=== PATIENT | female | born 1960 | race Caucasian/White ===

== ENCOUNTER 2020-05-23 13:51 | Outpatient (CLI) | payer MEDICARE, SELFPAY ==
[2020-05-23 14:21] LABS: Basophils % 0.4 %; Eosinophils # 0.1 10^3/uL (0.0-0.8); Eosinophils % 1.6 %; Hematocrit 41.8 % (37.0-47.0); Hemoglobin 13.3 g/dL (11.5-15.3); Lymphocytes # 2.3 10^3/uL (0.8-4.8); Lymphocytes % 30.5 %; Mean Corpuscular HGB Conc 31.8 g/dL (30.0-36.0); Mean Corpuscular Hemoglobin 28.5 pg (28.0-34.0); Mean Corpuscular Volume 89.5 fL (81-99); Mean Platelet Volume 10.8 fL (7.4-10.4); Monocytes # 0.5 10^3/uL (0.2-0.9); Monocytes % 6.7 %; Neutrophils # 4.58 10^3/uL (1.8-7.7); Neutrophils % 60.5 %; Nucleated Red Blood Cells % 0 %; Platelet Count 211 10^3/cmm (130-400); Red Blood Count 4.67 10^6/uL (4.1-5.3); Red Cell Distribution Width 12.9 % (12.1-15.1); White Blood Count 7.6 10^3/uL (4.0-10.0)
[2020-05-23 14:54] LABS: Alanine Aminotransferase 13 U/L (0-33); Albumin Level 4.3 g/dL (3.5-5.2); Alkaline Phosphatase 80 IU/L (35-105); Aspartate Amino Transferase 16 U/L (0-32); Blood Urea Nitrogen 12 mg/dL (8-23); Calcium 9.2 mg/dL (8.5-10.5); Carbon Dioxide 26 mmol/L (22-29); Chloride 103 mmol/L (98-107); Globulin 2.6 g/dL (1.3-4.6); Glomerular Filtration Rate 85.4 mL/min (90-130); Glucose 85 mg/dL (65-115); Osmolality Calculated 287 mOsm/kg (285-295); Sodium 139 mmol/L (136-145); Thyroid Stimulating Hormone 1.49 uIU/mL (0.27-4.20); Total Bilirubin 0.3 mg/dL (0.15-1.2); Total Protein 6.9 g/dL (6.6-8.7)
== END 2020-05-23 13:52 | disposition home or self-care (01) ==
LOC: LAB 13:56
PROVIDERS: PCP Family Medicine; Visit Provider Surgery
DX: R19.7 Diarrhea, unspecified (principal)
CPT/HCPCS: 80053; 83630; 84443; 85025; 87493; 87506

== ENCOUNTER 2020-06-10 12:35 | Outpatient (CLI) | payer MEDICARE, SELFPAY ==
[2020-06-10] MEDS: iohexol 300 mg/mL 50 mL Btl PO (13:25)
--- NOTE | 2020-06-10 14:30 | CT_ITS ---
WS: [id number] CT ABDOMEN PELVIS TECHNIQUE: Contrast-enhanced CT of the abdomen and pelvis with coronal and sagittal reformatted image s. CLINICAL INFORMATION: ABDOMINAL PAIN COMPARISON: CT 9 DLP: 1159.[address] scans at [facility] use at least one of these dose optimization techniques: automat ed exposure control; mA and/or kV adjustment per patient size (includes targeted exams where dose is matched to clinical indication); or iterative reconstruction. FINDINGS: Diffuse fatty infiltration of the liver. Normal portal vein and splenic vein. Normal gallbladder. A f ew incidental small hepatic cysts. Small esophageal hiatal hernia. Lung bases are well aerated. Splen ic granulomas. Normal pancreas. Adrenal glands are normal. Normal renal parenchymal enhancement. No h ydronephrosis. Normal caliber abdominal aorta. Sigmoid diverticulosis. Slight thickening and inflammatory stranding involving the sigmoid colon susp icious for mild or early diverticulitis. Recommend correlation for infection. No free fluid in the ab domen or pelvis. No evidence of small or large bowel obstruction. Normal appendix. Tiny fat-containin g umbilical hernia. No periaortic or pelvic lymphadenopathy. No inguinal lymphadenopathy. Prior postoperative changes hysterectomy. Stable grade 1 anterolisthesis L5 on S1 with spondylolysis. Disc space narrowing worse L5-S1 with vacuum disc phenomenon. CT/CT abdomen pelvis w con* [id number] IMPRESSION: 1. Suspicion for mild or early acute diverticulitis with mild thickening and i nduration of the sigmoid colon. 2. No free fluid in the abdomen or pelvis. 3. Diffuse fatty infiltration of the liver. 4. Small esophageal hiatal hernia. 5. Tiny fat-containing umbilical hernia. 6. Stable grade 1 anterolisthesis L5 on S1 with spondylolysis.
[2020-06-10] MEDS: iohexol 300 mg/mL 100 mL Btl IV (14:34)
== END 2020-06-10 12:36 | disposition home or self-care (01) ==
LOC: RADWPI 12:41
PROVIDERS: PCP Family Medicine; Visit Provider Surgery
DX: R10.9 Unspecified abdominal pain (principal); K76.0 Fatty (change of) liver, not elsewhere classified; K44.9 Diaphragmatic hernia without obstruction or gangrene; K42.9 Umbilical hernia without obstruction or gangrene; M43.07 Spondylolysis, lumbosacral region
CPT/HCPCS: 74177; Q9967

== ENCOUNTER 2023-03-18 08:52 | Emergency (ER) | payer MEDICARE, SELFPAY ==
[2023-03-18 08:57] VITALS: BP 178/103; PULSE 76; RESP 17; TEMP 36.9; O2SAT 94
--- NOTE | 2023-03-18 08:57 | XR_ITS ---
WS: [id number] Left hip, AP and frog-leg views, 03/18/2023 Clinical Data: pain Comparison: None. Findings: No fractures or dislocations are seen. The left hip shows no narrowing, erosion, cyst formation or fr agmentation of the left femoral head. The soft tissues are not remarkable. The adjacent pelvis is nor mal. XR/XR hip LT 2-3V wo/w pel* [id number] Impression: Negative left hip. Tonnis classification: grade 0: normal radiographs
[2023-03-18 09:20] VITALS: BP 178/103; PULSE 62; RESP 16; O2SAT 96
--- NOTE | 2023-03-18 09:23 | W.ED.EXTPRO ---
HPI - Extremity Problem General: Chief complaint: Extremity Problem,Nontraumatic Stated complaint: left leg/ hip pain Time Seen by Provider: 03/18/23 08:52 Source: patient Mode of arrival: ambulatory History of Present Illness: 62-year-old female presents the emergency room with complaint of left upper leg pain and left hip pain this been going on for several months lately it has been getting worse she has worsening this morning. Where she feels like she can barely ambulate no trauma. She has been seen for this before and is actually been referred to orthopedics has not yet seen Dr. Story has an appointment later this month. She not had any fever sweats or chills. No previous surgery to this area. Pain seems to emanate from the groin crease on the anterior thigh. No swelling of the leg no chest pain and no shortness of breath MD Complaint: extremity pain and joint pain Onset (ago): month(s) Pain Consistency: intermittent Location: left and lower extremity Quality: sharp Radiation: distal Relieving factors: rest Exacerbating factors: range of motion and palpation Associated symptoms: Deny arthralgias, chest pain, fever(s), myalgias, rash or short of breath Review of Systems Const: Denies: fever(s) or chills Card: Denies: chest pain, palpitations, irregular heart rhythm or edema Resp: Denies: dyspnea, productive cough or non-productive cough GI: Denies: abdominal pain, nausea, vomiting, hematemesis, coffee ground emesis, diarrhea, constipation, bloating, hematochezia or melena : Denies: flank pain, difficulty voiding, dysuria, urinary frequency or urinary urgency Skin/Breast: Denies: rash PFSH ED PFSH: Surgical History History of Silvana fundoplication Family History Denies family history of Anesthesia complication Bleeding disorder Social History Smoking and tobacco status: never smoked Alcohol intake: never Substance/Drug Use: never Adopted: No Caregiver/support person: Yes Lives independently: Yes Household members: spouse Housing: House Marital status: Current occupational status: employed 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 Physical Exam Const: GENERAL APPEARANCE: cooperative ORIENTATION/CONSCIOUSNESS: Yes awake, Yes oriented to person, Yes oriented to place and Yes oriented to time HENMT: COMMON NORMALS: normocephalic, atraumatic and hearing grossly normal bilaterally HEAD & SCALP: normocephalic and atraumatic Resp: COMMON NORMALS: normal respiratory effort, No retractions, No use of accessory muscles and clear to auscultation bilaterally AUSCULTATION: clear to auscultation bilaterally Cardio: COMMON NORMALS: regular rate, regular rhythm and No murmurs present (Cardio) RATE: regular rate RHYTHM: regular rhythm GI: COMMON NORMALS: Soft to palpation and No hepatosplenomegaly present AUSCULTATION: Yes normoactive bowel sounds PALPATION: Yes Soft to palpation, No Tenderness to palpation present (GI), No Guarding due to palpation present (GI) and Yes No hepatosplenomegaly present Extremity: COMMON NORMALS: normal to inspection, capillary refill normal, no clubbing, cyanosis or edema, no calf tenderness and no pedal edema OTHER: Pain with internal rotation of the left hip. Dorsum plantarflexion 5 of 5 no edema Homans negative. Dorsalis pedis posterior tibialis popliteal and femoral pulses all normal. Patient reports exquisite pain with attempts to palpate femoral pulse. There is no evidence of rash no vesicular changes no redness or erythema. No ecchymosis. Deep tendon reflexes +2/4 at the left patellar tendon. Neuro: SENSORIUM/ORIENTATION: Yes oriented to person, Yes oriented to place and Yes oriented to time Skin: COMMON NORMALS: no rashes or lesions noted GENERAL SKIN EXAM: no rashes or lesions noted Course Vital Signs: Vital signs: Vital Signs Temperature 98.4 F 03/18/23 08:57 Pulse Rate 62 03/18/23 09:20 Respiratory Rate 16 03/18/23 10:00 Blood Pressure 178/103 03/18/23 09:20 Pulse Oximetry 96 03/18/23 09:20 Oxygen Delivery Me thod Room Air 03/18/23 09:20 MDM - Extremity (Nontraumatic) Medical Decision Making No trauma. X-ray of the hip unremarkable. Neurovascularly appears to be intact has exquisite pain with even light touch will attempting to palpate femoral pulse. Seems this is more radicular in nature's suspect potential L3 nerve root irritation. Dexamethasone morphine and ketorolac given with some improvement will discharge home on steroid taper use hydrocodone in place of tramadol follow-up with orthopedics and primary care as previously scheduled. No bending stooping lifting. Medical Records I reviewed the patient's medical records. Lab Data I reviewed the patient's lab results. 03/18/23 09:20 Radiology Impressions Hip/Pelvis X-Ray 03/18/23 08:57 Impression: Negative left hip. Tonnis classification: grade 0: normal radiographs Laboratory Results WBC 6.4 10^3/uL (4.0-10.0) 03/18/23 09:20 RBC 4.79 10^6/uL (4.1-5.3) 03/18/23 09:20 Hgb 13.6 g/dL (11.5-15.3) 03/18/23 09:20 Hct 42.4 % (37.0-47.0) 03/18/23 09:20 MCV 88.5 fl (81-99) 03/18/23 09:20 MCH 28.4 pg (28.0-34.0) 03/18/23 09:20 MCHC 32.1 g/dL (30.0-36.0) 03/18/23 09:20 RDW 13.4 % (12.1-15.1) 03/18/23 09:20 Plt Count 227 10^3/cmm (130-400) 03/18/23 09:20 MPV 10.5 fL (7.4-10.4) H 03/18/23 09:20 Neut % (Auto) 64.7 % 03/18/23 09:20 Lymph % (Auto) 27.2 % 03/18/23 09:20 Cannon % (Auto) 5.2 % 03/18/23 09:20 Eos % (Auto) 2.0 % 03/18/23 09:20 Baso % (Auto) 0.6 % 03/18/23 09:20 Neut # (Auto) 4.14 10^3/uL (1.8-7.7) 03/18/23 09:20 Lymph # (Auto) 1.7 10^3/uL (0.8-4.8) 03/18/23 09:20 Cannon # (Auto) 0.3 10^3/uL (0.2-0.9) 03/18/23 09:20 Eos # (Auto) 0.1 10^3/uL (0.0-0.8) 03/18/23 09:20 Baso # (Auto) 0.0 10^3/uL (0.0-0.1) 03/18/23 09:20 Nucleated RBC % (auto) 0 % 03/18/23 09:20 Nucleated RBCs # 0.0 /100WBC 03/18/23 09:20 C-Reactive Protein 3.0 mg/L (0.0-4.9) 03/18/23 09:20 Discharge Plan Discharge Patient Disposition: Home Clinical Impression: Radicular leg pain Condition: Stable Prescriptions: New prednisone 20 mg tablet 20 mg PO TID Qty: 15 0RF Rx Instructions: 1 p.o. 3 times daily x3 days, 1 p.o. twice daily x2 days, 1 p.o. daily x2 days hydrocodone-acetaminophen 5-325 mg tablet 1 tab PO Q6H PRN (Reason: pain) Qty: 10 0RF Discontinued tramadol 50 mg tablet 50 mg PO TID PRN No Action meloxicam 15 mg tablet 15 mg PO DAILY ropinirole 0.5 mg tablet 0.5 mg PO DAILY omeprazole 20 mg capsule,delayed release(DR/EC) 20 mg PO BID propranolol 20 mg tablet 20 mg PO BID lisinopril 10 mg tablet 10 mg PO DAILY fluoxetine [Prozac] 40 mg capsule 40 mg PO DAILY dicyclomine 10 mg capsule 10 mg PO TID metronidazole [Flagyl] 500 mg tablet 500 mg PO TID 10 Days Qty: 30 0RF ciprofloxacin HCl 500 mg tablet 500 mg PO BID 10 Days Qty: 20 0RF Discharge Orders: Discharge ED (Routine); Ordered 03/18/23 Ordered By: Darrell Cazares Referrals: Anali Lay APRN [Primary Care Provider] - Discharge Diet: Usual diet Discharge Activity: Increase activity as tolerated Patient Instructions: Opioid Safety, Pain Management Activity Restrictions/Additional Instructions: You are seen today for radicular left leg pain. Recommend that you follow-up with your doctor and orthopedics as scheduled. Use the prednisone taper beginning tomorrow. Use the hydrocodone as needed in place of tramadol. Coding Level of Care Code ED Vice President Marketing & Development for Rachel Yuen
[2023-03-18 09:33] LABS: Basophils % 0.6 %; Eosinophils # 0.1 10^3/uL (0.0-0.8); Hematocrit 42.4 % (37.0-47.0); Hemoglobin 13.6 g/dL (11.5-15.3); Lymphocytes # 1.7 10^3/uL (0.8-4.8); Lymphocytes % 27.2 %; Mean Corpuscular HGB Conc 32.1 g/dL (30.0-36.0); Mean Corpuscular Hemoglobin 28.4 pg (28.0-34.0); Mean Corpuscular Volume 88.5 fl (81-99); Mean Platelet Volume 10.5 fL (7.4-10.4); Monocytes # 0.3 10^3/uL (0.2-0.9); Monocytes % 5.2 %; Neutrophils # 4.14 10^3/uL (1.8-7.7); Neutrophils % 64.7 %; Nucleated Red Blood Cells % 0 %; Platelet Count 227 10^3/cmm (130-400); Red Blood Count 4.79 10^6/uL (4.1-5.3); Red Cell Distribution Width 13.4 % (12.1-15.1); White Blood Count 6.4 10^3/uL (4.0-10.0)
[2023-03-18 10:00] VITALS: RESP 16
[2023-03-18] MEDS: ondansetron 2 mg/ML SDV 2 mL 4 MG IVP (10:00)
[2023-03-18] MEDS: morphine 4 mg/mL SDV 1 mL IVP (10:00)
[2023-03-18] MEDS: dexamethasone 10 mg/mL INJ IM (10:00)
[2023-03-18] MEDS: ketorolac 30 mg/mL INJ IVP (10:00)
== END 2023-03-18 11:10 | disposition home or self-care (01) ==
PROVIDERS: Emergency Provider Family Medicine; PCP Nurse Practitioner Family
DX: M54.10 Radiculopathy, site unspecified (principal)
CPT/HCPCS: 36415; 73502; 85025; 86140; 96372; 96374; 96375; 99284; J1100; J1885; J2270; J2405

== ENCOUNTER → 2023-04-04 10:09 | Outpatient (BNVA) | payer MEDICARE, SELFPAY | PROVIDERS: PCP Nurse Practitioner Family; Referring Provider Nurse Practitioner Family; Visit Provider Specialist | DX: M16.12 Unilateral primary osteoarthritis, left hip | CPT/HCPCS: 73502; 99214 ==

== ENCOUNTER 2023-04-26 06:48 | Outpatient (CLI) | payer MEDICARE, SELFPAY ==
--- NOTE | 2023-04-26 07:15 | MR_ITS ---
WS: [id number] EXAMINATION: MR hip LT wo con* [id number] ORDER DATE: 04/26/2023 7:02 AM COMPARISON: None. HISTORY: hip pain CONTRAST: None. TECHNIQUE: Coronal STIR of the Pelvis. Coronal proton density, coronal T1, axial T2 fat sat, axial T1 , sagittal T2 fat sat, and sagittal T1 performed of the hip. FINDINGS: Again seen is focal protuberance of the LEFT femoral head neck junction LEFT greater than RIGHT which can be seen with cam type femoral acetabular impingement. Advanced degenerative narrowing LEFT great er than RIGHT hips. Subchondral cystic change involving the acetabulum and femoral head with edema. M ild diffuse edema within the femoral head extending into the femoral neck. Chondromalacia anterior cunningham perior acetabulum with chronic appearing complex tear anterior superolateral labrum Small joint effusion. Normal bone marrow signal in the sacrum and bony pelvis. Soft tissue and intram uscular edema about the LEFT hip. IMPRESSION: 1. Slight protuberance of the LEFT femoral head-neck junction can be seen with cam type femoral acet abular impingement. 2. Advanced degenerative arthritis LEFT hip with subchondral cystic change and edema in the LEFT fem oral head and acetabulum. 3. Advanced chondromalacia with edema anterosuperior acetabulum with complex labral tear with fissur ing in the anterior superolateral labrum 4. Small joint effusion. 5. Soft tissue edema within the LEFT hip musculature and soft tissues. 6. No other acute findings.
== END 2023-04-26 06:49 | disposition home or self-care (01) ==
LOC: RAD 06:50
PROVIDERS: PCP Nurse Practitioner Family; Visit Provider Specialist
DX: M16.12 Unilateral primary osteoarthritis, left hip (principal); M25.559 Pain in unspecified hip; M94.252 Chondromalacia, left hip; M25.452 Effusion, left hip
CPT/HCPCS: 73721

== ENCOUNTER → 2023-04-27 08:43 | Outpatient (BNVA) | payer MEDICARE, SELFPAY | PROVIDERS: PCP Nurse Practitioner Family; Visit Provider Specialist | DX: M16.12 Unilateral primary osteoarthritis, left hip (principal); S73.192A Other sprain of left hip, initial encounter; X58.XXXA Exposure to other specified factors, initial encounter | CPT/HCPCS: 99214 ==

== ENCOUNTER 2023-05-18 10:32 | Outpatient (CLI) | payer MEDICARE, SELFPAY ==
[2023-05-18 11:13] LABS: Basophils % 0.6 %; Eosinophils # 0.1 10^3/uL (0.0-0.8); Eosinophils % 2.1 %; Hematocrit 43.3 % (36-47); Lymphocytes # 1.9 10^3/uL (0.8-4.8); Lymphocytes % 28.6 %; Mean Corpuscular HGB Conc 32.8 g/dL (30-55); Mean Corpuscular Hemoglobin 29.5 pg (27-33); Mean Corpuscular Volume 89.8 fl (85-98); Mean Platelet Volume 10.8 fL (7.4-10.4); Monocytes # 0.4 10^3/uL (0.2-0.9); Monocytes % 5.7 %; Neutrophils # 4.14 10^3/uL (1.8-7.7); Neutrophils % 62.7 %; Nucleated Red Blood Cells % 0 %; Platelet Count 232 10^3/cmm (157-399); Red Blood Count 4.82 10^6/uL (3.85-5.65); White Blood Count 6.61 10^3/uL (3.29-11.43)
[2023-05-18 11:31] LABS: Alanine Aminotransferase 8 U/L (0-33); Albumin Level 4.3 g/dL (3.5-5.2); Alkaline Phosphatase 72 U/L (35-105); Aspartate Amino Transferase 17 U/L (0-32); Blood Urea Nitrogen 12 mg/dL (8-23); Carbon Dioxide 27 mmol/L (22-29); Chloride 99 mmol/L (98-107); Globulin 2.9 g/dL (1.3-4.6); Glomerular Filtration Rate 84.5 mL/min (90-130); Glucose 76 mg/dL (65-115); Osmolality Calculated 283 mOsm/kg (285-295); Sodium 137 mmol/L (136-145); Total Bilirubin 0.3 mg/dL (0.15-1.2); Total Protein 7.2 g/dL (6.6-8.7)
[2023-05-18 11:40] LABS: Anion Gap 15.1 (5-19); Potassium 4.1 mmol/L (3.5-5.1)
[2023-05-18 11:52] LABS: Add Urine Microscopic? YES; Bilirubin Urine Neg (Negative); Blood Urine Neg (Negative); Glucose Urine UA Norm (Normal); Ketones Urine Negative (Negative); Leukocyte Esterase Urine 1+ (Negative); Nitrate Urine Negative (Negative); Protein Urine Neg (Negative); Specific Gravity, Urine 1.005 (1.005-1.030); Urine Appearance Clear (CLEAR); Urine Color Yellow (Yellow); Urobilinogen Urine Norm (Negative); pH Urine 7 (5-7)
[2023-05-18 12:04] LABS: Add Urine Culture? No; RBC Urine RARE /hpf (0-2); Squamous Epithelial Cell Urine 0-4 /hpf (0-5)
== END 2023-05-18 10:33 | disposition home or self-care (01) ==
LOC: LAB 10:33
PROVIDERS: PCP Nurse Practitioner Family; Visit Provider Specialist
DX: M16.12 Unilateral primary osteoarthritis, left hip (principal); S73.199A Other sprain of unspecified hip, initial encounter; X58.XXXA Exposure to other specified factors, initial encounter
CPT/HCPCS: 36415; 80053; 81001; 85025

== ENCOUNTER → 2023-05-23 09:00 | Outpatient (BNVA) | payer MEDICARE, SELFPAY | PROVIDERS: PCP Nurse Practitioner Family; Visit Provider Specialist | DX: M16.12 Unilateral primary osteoarthritis, left hip (principal) | CPT/HCPCS: 99213 ==

== ENCOUNTER 2023-05-24 18:25 | Observation (INO) | payer MEDICARE, SELFPAY ==
[2023-05-23 09:34] VITALS: BMI 29.2
[2023-05-24] VITALS (18 sets, daily range): BP systolic 91–148; BP diastolic 65–87; PULSE 51–74; RESP 15–18; TEMP 36.2–36.8; O2SAT 91–100
--- NOTE | 2023-05-24 | XRR_ITS ---
[facility] Final Radiology Report with Addendum Call: [phone] assistance Online chat: [email or web address] Name: MIRTHA GOTTLIEB Age: 62Years F Date: 05/24/2023 SSN: -- : 1960 Study: XR PELVIS 1 OR 2 VIEWS Requesting Physician: KAY PERSAUD Images: 1 Add?l Studies: Provided Clinical History: S/P ANA PAULA, Low AP Pelvis Page 1 of 2 Addendum created by Sawyer Lay MD on 05/25/2023 9:23 AM Central Time ([place] & [place]): ADDENDUM: The correct name for this examination is actually Mirtha Gottlieb. Addendum created by Sawyer Lay MD on 05/25/2023 8:56 AM Central Time ([place] & [place]): ADDENDUM: This examination is actually on patient Mirtha Figueroa. The correct patient for this examination is Mirtha Figueroa. Initial Report created on 05/24/2023 4:21 PM Central Time ([place] & [place]): PROCEDURE INFORMATION: Exam: XR Pelvis Exam date and time: 05/24/2023 2:48 PM Age: 70 years old Clinical indication: Device placement; Other: Ana Paula, prior surgery; Surgery date: Post-operative (0-2 days); Additional info: S/P ana paula, low ap pelvis TECHNIQUE: Imaging protocol: Radiologic exam of the pelvis. Views: 1 or 2 view. COMPARISON: CR XR hip RT 2-3V wo/w pel* [id number] 06/20/2017 3:39 PM FINDINGS: Bones/joints: Satisfactory immediate postoperative appearance of left total hip arthroplasty. Soft tissues: Postoperative gas in the soft tissues. IMPRESSION: MIRTHA GOTTLIEB Final Radiology Report CONFIDENTIALITY STATEMENT This report is intended only for use by the referring physician, and only in accordance with law. If you received this in error, call [phone]. Page 2 of 2 Satisfactory postoperative appearance. Thank you for allowing us to participate in the care of your patient. Dictated and Authenticated by: Sawyer Lay MD 05/24/2023 4:21 PM Central Time ([place] & [place]) [place]
--- OUTSIDE RECORDS SUMMARY | 2023-05-24 08:57 | XMS_ITS | Patient Health Record ---
Author Name Unknown Organization [facility] Address [address] [place] [address] Care Team Providers Care Surveillance Sensor Officer Name Role Phone LakishaDennys bowenin Primary Care Provider Юлия Melendez Unavailable [phone] ALLERGIES Allergen (clinical drug ingredient) Drug/Non Drug Allergy documented on EMR Reaction Allergy Type Onset Date Status No Known Drug Allergy Unknown Drug Allergy Active REASON FOR REFERRAL No Information MEDICATIONS Medication SIG (Take, Route, Fr equency, Duration) Notes Start Date End Date Status rOPINIRole HCl 0.5 MG 1 tablet 1 to 3 ho urs before bedtime Orally Once a day Active Reglan 10 MG 1 tablet 30 minutes before bowel prep Orally once for 1 days 11/02/2021 Active Meloxicam 15 MG 1 tablet Orally Once a day Active Omeprazole 20 MG 1 capsule 30 minutes before morning meal Orally twice a day Active Lisinopril 10 MG 1 tablet Orally Once a day Active FLUoxetine HCl 40 MG 1 capsule Orally Once a day Active Propranolol HCl 20 MG 1 tablet Orally Twice a day Active IMMUNIZATIONS Vaccine Route Administration Date Status Comme nts Influenza (whole), CPT 46442 Inactive Unknown 07/02/2015 Administered SOCIAL HISTORY Tobacco Use: Social History Observation Description Date Details (start date - stop date) Never Smoker NA - NA Sex Assigned At : Social History Observation Description Sex Assigned At Unknown Tobacco Use/Smoking Question Answer Notes Are you a nonsmoker Alcohol Screen (Audit-C) Question Answer Notes Did you have a drink containing alcohol in the p ast year? No Points 0 Interpretation Negative PROBLEMS Problem Type ICD Code Onset Dates Problem Status W/U Status Risk SNOMED Code Notes Problem Essential hypertension (I10) Active confirmed 07131876 Problem Restless legs syndrome (RLS) (G25.81) Active confirmed 83987385 Problem Gastroesophageal reflux disease, unspecified whether esophagitis present (K21.9) Active confirmed 407428176 Problem Chronic depression (F32.A) Active confirmed 147841097 PLAN OF TREATMENT Pending Test Test Name Order Date Fecal Leukocyte 91379 11/02/2021 Basic Metabolic Panel 82612 11/02/2021 CBC w\ Auto Diff 42103 11/02/2021 Hepatic Function Panel 53183 11/02/2021 CRP 10129 11/02/2021 Calprotectin Fecal 14722 11/02/2021 Pancreatic Elastase Fecal--50799 022 Diagnostic Colonoscopy-87204 11/02/2021 Insurance Providers Payer Name Payer Address Payer Phone Subscriber Number Group Number Insured Name Patient Relationship to Insured Coverage Start Date Coverage End Date [employer] Medicare Replacement [address] [address] [place] [phone] [id number] Elizabeth Gottlieb Self - patient is the insured MEDICAL (GENERAL) HISTORY Medical History History ICD Code Problem:Anxiety (finding) , Status :: Ac tive Problem:Arthritis (disorder) , Status :: Active Problem:Bipolar disorder (disorder) , St atus :: Active Problem:Depressive disorder (disorder) , Status :: Active Problem:Diverticulitis of colon (disorde r) , Status :: Active Problem:Gastroesophageal reflux disease (disorder) , Status :: Active Problem:Hiatal hernia (disorder) , Statu s :: Active Problem:Iron deficiency anemia (disorder ) , Status :: Active Problem:Migraine (disorder) , Status :: Active Problem:Peripheral vascular disease (dis order) , Status :: Active Hypertension Surgical History Surgery Date(Month/Year) hiatal hernia repair with mesh implant hysterectomy bilateral carpal tunnel release bilateral tubal ligation
[2023-05-24 09:22] LABS: Add Urine Microscopic? NO; Charge for UA Resulting for Rev
--- NOTE | 2023-05-24 09:25 | SUR.PREOP ---
09:10 lucas catheter inserted and stat urine analysis sent.
[2023-05-24 09:34] LABS: Bilirubin Urine Neg (Negative); Blood Urine Neg (Negative); Glucose Urine UA Norm (Normal); Ketones Urine Negative (Negative); Leukocyte Esterase Urine Negative (Negative); Nitrate Urine Negative (Negative); Protein Urine Neg (Negative); Urine Appearance Clear (CLEAR); Urine Color Yellow (Yellow); Urobilinogen Urine Norm (Negative); pH Urine 6 (5-7)
[2023-05-24] MEDS: CELEcoxib 200 mg Capsule 400 MG PO (09:56)
[2023-05-24] MEDS: acetaminophen 1,000 MG/100 ML PIGGYBACK 400 MG IV ×2 (09:56→18:40)
[2023-05-24] MEDS: gabapentin 300 mg Capsule PO (09:56)
[2023-05-24] MEDS: sodium chloride 0.9% 1,000 ML 30 ML IV (10:05)
--- NOTE | 2023-05-24 10:07 | ANES.PREANE2 ---
Pre-Anesthetic Assessment Height/Weight: Height 1.7 m Weight 84.822 kg Temp Pulse Resp BP Pulse Ox O2 Del Method 97.6 F 65 18 127/73 95 Room Air 05/24/23 09:15 05/24/23 09:15 05/24/23 09:15 05/24/23 09:15 05/24/23 09:15 05/24/23 09:30 Operation Date: 05/24/23 10:40 Proposed Procedures p LEFT TOTAL HIP ARTHROPLASTY 87709,M16.9(Left) - Suzanne Jimenez MD Familial anesthetic complications: none Was Beta Helen taken within 24 hours: N/A Was Clonidine taken within 24 hours: N/A Last intake: Intake Last Liquid Date 05/23/23 Last Liquid Time 20:00 Last Solid Date 05/23/23 Last Solid Time 19:00 Social No alcohol and No tobacco Exam alert, oriented x 3, clear to auscultation bilaterally and regular rate & rhythm Airway Submandibular: within normal limits Cervical ROM: within normal limits Mallampati: Class II Dentition: chipped GI Silvana (for large hiatal hernia) Musc/skel Osteoarthritis/DJD Neuropsych Anxiety and Depression Anesthetic Plan ASA status: 2 Anesthesia: Regional (specify below) (SAB) Medications/Allergies Home Medications Medication Instructions Recorded Confirmed Last Taken Type hydrocodone 5 mg-acetaminophen 325 1 tab PO Q6H PRN pain #10 tabs 03/18/23 05/23/23 05/23/23 Rx mg tablet gabapentin 300 mg capsule 300 mg PO DAILY 05/23/23 05/23/23 05/23/23 History sertraline 100 mg tablet (Zoloft) 100 mg PO DAILY 05/23/23 05/23/23 05/23/23 History sulfamethoxazole 800 1 tab PO BID #20 tabs 05/23/23 05/23/23 05/23/23 23:50 Rx mg-trimethoprim 160 mg tablet (Bactrim DS) Allergies Allergy/AdvReac Type Severity Reaction Status Date / Time No Known Allergies Allergy Verified 05/23/23 11:12 PFSH Anesthesia Surgical History History of Silvana fundoplication Family History Denies family history of Anesthesia complication Bleeding disorder Social History Smoking and tobacco status: never smoked Alcohol intake: never Substance/Drug Use: never Adopted: No Caregiver/support person: Yes Lives independently: Yes Household members: spouse Housing: House Marital status: Current occupational status: employed 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
[2023-05-24] MEDS: fentaNYL 50 mcg/mL INJ 2mL IVP (10:18)
--- NOTE | 2023-05-24 11:00 | W.PM.OPSUD ---
Surgery/Procedure H&P Update DATE OF PROCEDURE: May 24, 2023 DATE H&P PERFORMED: 05/23/23 H&P UPDATE INFORMATION: I have reviewed H&P completed within last 30 days, I have examined patient prior to procedure, Changes to prior documentation as noted here and [place] in [facility] [place] indicated CHANGES TO PREVIOUS DOCUMENTATION: The patient had a clean-catch urine concerning for possible infection. She was treated with Bactrim with intent for a Tafoya cath specimen to be performed on the day of surgery. This was accomplished, and there was no evidence of infection. Decision was made to proceed with surgery. PLANNED PROCEDURE: Operation Date: 05/24/23 10:40 Proposed Procedures p LEFT TOTAL HIP ARTHROPLASTY 90221,M16.9(Left) - Suzanne Jimenez MD Related Problem List Diagnoses (1) Primary osteoarthritis of left hip:
[2023-05-24] MEDS: ceFAZolin 2,000 MG in sodium chloride 0.9% (plus) 50 ML 100 MG IV ×2 (11:14→18:51)
[2023-05-24] MEDS: tranexamic acid 1,000 mg/10mL SDV 1000 MG IV (11:45)
[2023-05-24] MEDS: vancomycin 1,000 MG SDV 1000 MG XX (12:28)
[2023-05-24] MEDS: ceFAZolin 1,000 mg SDV 1000 MG IRRIGATION (12:31)
--- NOTE | 2023-05-24 14:51 | PM.OP ---
Operative Report Date of procedure: May 24, 2023 Pre-op diagnosis: Primary osteoarthritis left hip Post-op diagnosis: Primary osteoarthritis left hip Post-op findings: Severe degenerative osteoarthritis and severe osteopenia Procedure done: Left total hip arthroplasty Implants: The Ballinger total hip system with a size 50 mm by D alpha code Trident II Tritanium cluster hole acetabular shell with 2 screws and an MDM liner size 38 mm inner diameter by D alpha code.? A size 5 Accolade II 127? neck angle hip stem with a size 22.2 mm x +3 mm femoral head and a pentecostal MDM X3 insert size 38D Specimens removed/disposition: Bone, disposed of no other Surgeon: Suzanne Jimenez MD Business Development Sales Executive: Suze Tanner NP. Services of the nurse practitioner assistant infant toddler teacher were required for positioning, manipulation of the leg during the surgical procedure, retraction, and completion of the surgical procedure. Anesthesia: Spinal (With MAC, ASA 2) Estimated blood loss (mL): 200 IV fluids (mL): 1,500 Urine output (mL): 300 Complications: None Findings: Severe degenerative osteoarthritis with severe osteopenia. Hip was stable to toe hang, external rotation, and it was also stable at 90 degrees of flexion with 30 degrees of adduction and 60 degrees of internal rotation. Condition: stable Disposition: PACU (Then discharged to home for postoperative rehabilitation and pain management) Brief History: This is an established 62 year old female patient here today to proceed with Left Total Hip Arthroplasty. She was last seen in the office yesterday and her surgery was further discussed with her. Plans were made for total hip arthroplasty. Risks and complications were discussed with her and consents were signed. Questions were answered. Since her last visit her pain has increased and her range of motion has decreased. She needs help getting in and out of her truck and help getting her left leg onto the bed. She his taking her 's hydrocodone for pain because the Tylenol she normally takes is not longer working. She has issues getting comfortable enough to rest in bed. Procedure: Patient was brought to the operating theater.? She was transferred to the operating room table and subsequently administered a spinal anesthesia with MAC, ASA 2.? Following administration of adequate anesthesia, the patient was placed in full lateral position and held in position with a pegboard.? The patient's left lower extremity was then prepped and draped in usual fashion utilizing DuraPrep.? It was draped free.? Following prepping and draping, a surgical pause was performed.? At the time of surgical pause, we identified the site and side of surgery.? We also identified the patient and preoperative surgical markings.? Additionally, leg lengths were marked after draping.? Confirmation was made of equipment availability.? The patient's preoperative IV antibiotic, Ancef 2 g, and TXA administration was confirmed as well.? X-rays were also reviewed. Following the surgical pause, an incision was made centering over the patient's greater trochanter continuing proximally and distally as necessary to allow access to the hip joint.? Dissection continued through skin and soft tissues using a scalpel, and hemostasis was obtained using electrocautery. The tensor fascia bc was identified and incised longitudinally, and the tensor fascia bc was noted to be very tight. Exposure was difficult secondary to this. Sciatic nerve was identified and protected throughout the surgical procedure.? A Charnley U retractor was placed after the tensor fascia bc had been incised longitudinally, and the sciatic nerve had been identified.? The hip was internally rotated, and the piriformis muscle was identified and tagged. Piriformis muscle along with the remaining short external rotators were then incised from the posterior aspect of the hip joint.? These were retracted posteriorly.? The capsule was entered in a T-type fashion with the edges being tagged, and subsequently the hip was dislocated.? There was very thickened labrum as well.? This was excised with further excision accomplished once the femoral head was removed.? Following hip dislocation, a femoral neck osteotomy was accomplished in the appropriate position.? The head was measured, but it was quite deformed.? Subsequently, it was disposed of.? We then evaluated the acetabulum. The femur was retracted anteriorly.? Soft tissues were retracted, and the labrum was removed.? We then began reaming.? Once the femoral head was removed, there was noted to be significant loss of cartilage over the head with the previously noted deformity and within the acetabulum.? We reamed to a size 49mm to allow for a size 50 mm acetabular shell.? The acetabulum was impacted into position.? Initially, we used a solid acetabulum, however, this would not give excellent fixation, therefore, we changed to a cluster cup. The cluster cup was impacted into position, 2 screws were placed. The screws had good bite. The cup was stable. The MDM liner was then impacted into position with care being taken to assure it seated appropriately.? It was noted that the acetabulum matched the bony anatomy.? The cup was noted to seat nicely and had good fixation upon impact. Attention was directed to the proximal femur.? The proximal femur was lifted out of the wound.? A canal finder was passed after the box chisel.? The reamer was used to lateralize.? We then began broaching. We broached sequentially and had excellent fit and fill with the size 5 broach. ? A trial reduction was attempted with a +0 mm femoral head.? Subsequently, secondary to leg length comparison, we changed to a +3 mm femoral head. With this construct, the hip was stable, and leg length was felt to be equal.? With this in place, we had the above stabilities.? This was felt to be excellent stability. Therefore, trial components were removed after the hip was dislocated.? The size 5 Accolade II 127? neck angle stem was impacted into position without difficulty and onto this was placed a +3 mm x 28 mm femoral head which had been assembled into the MDM insert size 38D.? With a +3 mm femoral head, we had the above-noted stability.? The stem was noted to seat nicely prior to placement of the femoral head.? The wound was copiously irrigated with 20 mL of Betadine and 500 mL of normal saline mixed together.? Subsequently, we suctioned this out and irrigated the wound copiously with lactated Ringer's.? At this time, with all components in appropriate position, the hip was reduced.? Following reduction of the prosthesis once again, we confirmed the stability of the hip.? Leg lengths were also felt to be satisfactory. Being satisfied with the prosthesis, attention was directed to closure.? Closure was accomplished with 0 Vicryl in the capsular tissues.? Piriformis was reattached with 0 Vicryl as well.? Tensor fascia bc was closed with 0 Vicryl in an interrupted fashion.? The subcutaneous tissues were closed with a combination of 0 Vicryl and 2-0 Monocryl.? Vancomycin powder and a Gelfoam thrombin mixture was placed into the wound as well.? The skin was closed with a running 3-0 Monoclou followed by Samuel Orellana followed by Narcisa.? The patient was placed in an abduction pillow.? She was returned the Recovery Room in a satisfactory condition and will be discharged to the floor for postoperative rehabilitation and pain management.? There were no complications or specimens. Related Problem List Diagnoses (1) Primary osteoarthritis of left hip:
[2023-05-24] MEDS: ondansetron 2 mg/ML SDV 2 mL 4 MG IVP (16:18)
--- NOTE | 2023-05-24 16:52 | ANE.PACU2 ---
Inpatient post-anesthesia follow up: Airway intact: Yes Vital signs: Temperature 98.2 F Pulse Rate 51 Respiratory Rate 15 Blood Pressure 118/80 Pulse Oximetry 96 Oxygen Delivery Me thod Room Air Oxygen Flow Rate 2 Fraction of Inspir ed Oxygen Hydration adequate: Yes Nausea and vomiting: No Pain level: 1 Mental status: Baseline
[2023-05-24] MEDS: oxyCODONE 5 mg IR Tab/Cap PO ×2 (17:19→20:51)
[2023-05-24] MEDS: CELEcoxib 200 mg Capsule PO (20:52)
[2023-05-24] MEDS: chlorhexidine gluconate 0.12% Btl 473 mL 30 ML MUCOUS MEM (20:53)
[2023-05-25] VITALS (9 sets, daily range): BP systolic 98–152; BP diastolic 55–79; PULSE 58–82; RESP 16–18; TEMP 36.6–36.9; O2SAT 93–97
[2023-05-25] MEDS: ceFAZolin 2,000 MG in sodium chloride 0.9% (plus) 50 ML 100 MG IV ×2 (02:27→11:05)
[2023-05-25] MEDS: acetaminophen 1,000 MG/100 ML PIGGYBACK 400 MG IV ×2 (02:27→11:04)
[2023-05-25] MEDS: oxyCODONE 5 mg IR Tab/Cap PO ×3 (02:27→18:25)
[2023-05-25 05:28] LABS: Basophils % 0.4 %; Eosinophils # 0.1 10^3/uL (0.0-0.8); Eosinophils % 0.9 %; Hematocrit 33.9 % (36-47); Lymphocytes # 1.2 10^3/uL (0.8-4.8); Lymphocytes % 14.5 %; Mean Corpuscular HGB Conc 31.9 g/dL (30-55); Mean Corpuscular Volume 90.9 fl (85-98); Mean Platelet Volume 10.8 fL (7.4-10.4); Monocytes # 0.5 10^3/uL (0.2-0.9); Monocytes % 6.4 %; Neutrophils # 6.24 10^3/uL (1.8-7.7); Neutrophils % 77.3 %; Nucleated Red Blood Cells % 0 %; Platelet Count 174 10^3/cmm (157-399); Red Blood Count 3.73 10^6/uL (3.85-5.65); Red Cell Distribution Width 13.2 % (12.1-15.1); White Blood Count 8.07 10^3/uL (3.29-11.43)
[2023-05-25 05:55] LABS: Anion Gap 11.7 (5-19); Blood Urea Nitrogen 17 mg/dL (8-23); Calcium 8.3 mg/dL (8.5-10.5); Carbon Dioxide 24 mmol/L (22-29); Chloride 103 mmol/L (98-107); Glomerular Filtration Rate 63.2 mL/min (90-130); Glucose 136 mg/dL (65-115); Osmolality Calculated 282 mOsm/kg (285-295); Potassium 4.7 mmol/L (3.5-5.1); Sodium 134 mmol/L (136-145)
[2023-05-25] MEDS: calcium carbonate 500 mg Chew Tablet 1000 MG PO ×2 (09:04→17:25)
[2023-05-25] MEDS: cholecalciferol (vitamin D3) 1,000 unit Tablet 1000 UNIT PO (09:05)
[2023-05-25] MEDS: iron polysaccharide complex 150 mg Capsule PO ×2 (09:05→17:25)
[2023-05-25] MEDS: sennosides-docusate Tablet 2 TAB PO ×2 (09:06→17:25)
[2023-05-25] MEDS: multivitamin therapeutic Tablet 1 TAB PO (09:07)
[2023-05-25] MEDS: CELEcoxib 200 mg Capsule PO (09:07)
[2023-05-25] MEDS: sertraline 100 mg Tablet PO (09:07)
[2023-05-25] MEDS: aspirin 325 mg EC Tablet PO (09:07)
[2023-05-25] MEDS: chlorhexidine gluconate 0.12% Btl 473 mL 30 ML MUCOUS MEM ×3 (09:07→17:26)
[2023-05-25] MEDS: gabapentin 300 mg Capsule PO (09:07)
[2023-05-25] MEDS: mupirocin oint 22 gm 1 APPLIC NASAL ×2 (09:09→17:26)
[2023-05-25] MEDS: ondansetron 2 mg/ML SDV 2 mL 4 MG IVP (09:58)
--- NOTE | 2023-05-25 11:17 | PC.CHAP ---
Pastoral Care Encounter/Spiritual Assessment Type of Contact [] Declined sports centre manager visit [] Patient/Family/Request visit [] Outpatient visit [] Follow-up visit [] Physician referral [] Code/Alert [x] Routine visit [] Staff referral [] Actively dying [] Patient sleeping [] Family support [] [] Out of room [] Palliative care [] [] Receiving care in room [] Pre-surgical visit [] Trauma [] Long length of stay [] ICU visit [] Other: Relational/Emotional Strength [x] Patient feels connected with others/family/visitors/staff [] Distress [] Loneliness/isolation [] Abandonment Spirituality of Patient [] Person of [place] [] Attends Mu-Ism of their [place] [] Believes in Prayer [] Reads Bible or Buddhist materials [] There are Spiritual issues to be addressed Kettle Coordinator Interventions [x] Prayer [] Active listening [] Non-anxious presence [] Spiritual/emotional support [] Crisis/trauma care [] Spiritual counseling [] Bereavement support [] Provided bereavement packet [] Provided Bible/devotional materials [] Provided toy/stuffed animal, coloring book to patient or family member [] Provided Communion [] Anointing/Winnie [] Salvation [] Completed spiritual assessment [] Other: Impact on Illness or Injury [] Angry [] Fearful [] Anxious [] Often cries [] Exhaustion [] Unable to work [] Unable to attend church [] Unable to walk/stand [] Unable to read [] Unable to drive [] Unable to eat/drink [] Unable to sleep [] Unable to be with family [] Patient intubated [] Other: Summary Time spent with patient 10 min
--- NOTE | 2023-05-25 13:17 | PM.DCS ---
Discharge Providers Date of Admission: 05/24/23 18:25 Date of Discharge: May 25, 2023 Attending Provider at Admission: Suzanne Jimenez MD Attending Provider at Discharge: Suzanne Jimenez MD Primary Care Provider: Elizabeth Lay APRN Diagnoses at Discharge Discharge Diagnosis (1) Primary osteoarthritis of left hip: Status: Acute (2) History of total left hip arthroplasty: Status: Acute Permanent problem details: Date of procedure: May 24, 2023 Diagnosis: Primary osteoarthritis left hip Post-op findings: Severe degenerative osteoarthritis and severe osteopenia Procedure done: Left total hip arthroplasty Implants: The Gray total hip system with a size 50 mm by D alpha code Trident II Tritanium cluster hole acetabular shell with 2 screws and an MDM liner size 38 mm inner diameter by D alpha code. A size 5 Accolade II 127? neck angle hip stem with a size 22.2 mm x +3 mm femoral head and a yarsanism MDM X3 insert size 38D Reason for Visit Reason for Visit: 75360 M16.9 Brief History: This is an established 62 year old female patient here today to proceed with Left Total Hip Arthroplasty.? She was last seen in the office yesterday and her surgery was further discussed with her.? Plans were made for total hip arthroplasty.? Risks and complications were discussed with her and consents were signed.? Questions were answered.? Since her last visit her pain has increased and her range of motion has decreased. She needs help getting in and out of her truck and help getting her left leg onto the bed. She his taking her 's hydrocodone for pain because the Tylenol she normally takes is not longer working. She has issues getting comfortable enough to rest in bed. Hospital Course Hospital Course This 62-year-old woman was admitted under observation status for same-day surgery. On the first postoperative day, she was doing well. She was independent with ambulation and was felt to be safe for discharge to home. She has been seen by physical therapy. Medically, she was stable. Her family was also comfortable with her being discharged home. Dressings were dry. There is no evidence of DVT. There is minimal ecchymosis about the hip. Physical Exam Const: COMMON NORMALS: no acute distress, average body habitus, patient oriented x3 and alert GENERAL APPEARANCE: cooperative and comfortable ORIENTATION/CONSCIOUSNESS: Yes awake HENMT: COMMON NORMALS: normocephalic and atraumatic HEAD & SCALP: normocephalic and atraumatic Eye: GENERAL EYE: appearance normal, both eyes and all related structures Chest: COMMONS NORMALS: normal inspection of the chest Resp: COMMON NORMALS: normal respiratory effort EFFORT & INSPECTION: Yes able to speak in complete sentences and Yes symmetric chest movement Extremity: LEFT LOWER EXTREMITY: Yes hip joint (Dressing was dry and intact.) Left hip: Yes inspection (Minimal to no ecchymosis.), Yes ROM (Not evaluated.) and Yes neurovascular exam (Intact distally.) Neuro: COMMON NORMALS: patient oriented x3 SENSORIUM/ORIENTATION: Yes alert Psych: COMMON NORMALS: mental status grossly normal APPEARANCE: Yes grossly normal ATTITUDE: Yes calm and Yes engaged ATTENTION/CONCENTRATION: Yes attention grossly intact Skin: COMMON NORMALS: no rashes or lesions noted GENERAL SKIN EXAM: no rashes or lesions noted Urinary Catheter Management: Tafoya: Cath Placed During This Visit: yes, but has since been removed by the nurse Reason for Continuing Indwelling Catheter: Decision to DC Catheter Urinary Catheter Date of Insertion: 05/24/23 Urinary Catheter Time of Insertion: 09:05 Date Urinary Catheter Removed: 05/25/23 Time Urinary Catheter Discontinued: 06:40 Discharge Data Studies Completed and Pending Completed Studies During Hospitalization Category Date Time Status XR pelvis 1-2V* [id number] Routine Exams 05/24/23 18:30 Completed Laboratory Results WBC 8.07 10^3/uL (3.29-11.43) 05/25/23 04:55 RBC 3.73 10^6/uL (3.85-5.65) L 05/25/23 04:55 Hgb 10.80 g/dL (11.27-16.99) L 05/25/23 04:55 Hct 33.9 % (36-47) L 05/25/23 04:55 MCV 90.9 fl (85-98) 05/25/23 04:55 MCH 29.0 pg (27-33) 05/25/23 04:55 MCHC 31.9 g/dL (30-55) 05/25/23 04:55 RDW 13.2 % (12.1-15.1) 05/25/23 04:55 Plt Count 174 10^3/cmm (157-399) 05/25/23 04:55 MPV 10.8 fL (7.4-10.4) H 05/25/23 04:55 Neut % (Auto) 77.3 % 05/25/23 04:55 Lymph % (Auto) 14.5 % 05/25/23 04:55 [place] % (Auto) 6.4 % 05/25/23 04:55 Eos % (Auto) 0.9 % 05/25/23 04:55 Baso % (Auto) 0.4 % 05/25/23 04:55 Neut # (Auto) 6.24 10^3/uL (1.8-7.7) 05/25/23 04:55 Lymph # (Auto) 1.2 10^3/uL (0.8-4.8) 05/25/23 04:55 [place] # (Auto) 0.5 10^3/uL (0.2-0.9) 05/25/23 04:55 Eos # (Auto) 0.1 10^3/uL (0.0-0.8) 05/25/23 04:55 Baso # (Auto) 0.0 10^3/uL (0.0-0.1) 05/25/23 04:55 Nucleated RBC % (auto) 0 % 05/25/23 04:55 Nucleated RBCs # 0.0 /100WBC 05/25/23 04:55 Sodium 134 mmol/L (136-145) L 05/25/23 04:55 Potassium 4.7 mmol/L (3.5-5.1) 05/25/23 04:55 Chloride 103 mmol/L (98-107) 05/25/23 04:55 Carbon Dioxide 24 mmol/L (22-29) 05/25/23 04:55 Anion Gap 11.7 (5-19) 05/25/23 04:55 BUN 17 mg/dL (8-23) 05/25/23 04:55 Creatinine 0.9 mg/dL (0.5-0.9) 05/25/23 04:55 GFR Calculation 63.2 mL/min (90-130) L 05/25/23 04:55 Glucose 136 mg/dL (65-115) H 05/25/23 04:55 Calculated Osmolality 282 mOsm/kg (285-295) L 05/25/23 04:55 Calcium 8.3 mg/dL (8.5-10.5) L 05/25/23 04:55 Urine Color Yellow (Yellow) 05/24/23 09:05 Urine Appearance Clear (CLEAR) 05/24/23 09:05 Urine pH 6 (5-7) 05/24/23 09:05 Ur Specific [place] 1.020 (1.005-1.030) 05/24/23 09:05 Urine Protein Neg (Negative) 05/24/23 09:05 Urine Glucose (UA) Norm (Normal) 05/24/23 09:05 Urine Ketones Negative (Negative) 05/24/23 09:05 Urine Blood Neg (Negative) 05/24/23 09:05 Urine Nitrate Negative (Negative) 05/24/23 09:05 Urine Bilirubin Neg (Negative) 05/24/23 09:05 Urine Urobilinogen Norm mg/dL (Negative) 05/24/23 09:05 Ur Leukocyte Esterase Negative (Negative) 05/24/23 09:05 Vitals Last Vital Signs Temp 97.9 F 05/25/23 12:00 Pulse 82 05/25/23 12:00 Resp 17 05/25/23 12:00 BP 98/64 05/25/23 12:00 Pulse Ox 93 05/25/23 12:00 O2 Del Method Room Air 05/25/23 07:24 O2 Flow Rate 2 05/24/23 15:12 Discharge Plan Discharge Patient Disposition: Home Health Service Condition: Stable Prescriptions: New acetaminophen 500 mg Tablet 1,000 mg PO Q8H 15 Days Qty: 90 0RF aspirin 325 mg Tablet,Delayed Release (Dr/Ec) 325 mg PO DAILY 30 Days Qty: 0 0RF celecoxib 200 mg Capsule 200 mg PO 1XD 30 Days Qty: 30 0RF oxycodone 5 mg Tablet 5 mg PO Q4H PRN (Reason: Moderate Pain) 7 Days Qty: 30 0RF Continued sertraline [Zoloft] 100 mg Tablet 100 mg PO DAILY gabapentin 300 mg capsule 300 mg PO DAILY hydrocodone-acetaminophen 5-325 mg tablet 1 tab PO Q6H PRN (Reason: pain) Qty: 10 0RF Discontinued sulfamethoxazole-trimethoprim [Bactrim DS] 800-160 mg tablet 1 tab PO BID Qty: 20 0RF Discharge Orders: Discharge Order (Routine); Ordered 05/25/23 Ordered By: Suzanne Jimenez Referrals: Suzanne Jimenez MD [Physician] - 06/08/23 8:15 am Discharge Diet: Advance as tolerated and Usual diet Discharge Activity: Increase activity as tolerated, Limit activity as instructed, Use walker/crutches as instructed and As per PT/OT instructions Patient Instructions: Oxycodone, Rapid Release (By mouth), Celecoxib (By mouth), Joint Replacement Surgery (GEN), Total Hip Replacement (GEN), Hip Abduction Pillow (GEN), Opioid Safety Activity Restrictions/Additional Instructions: Ice to left hip. Posterior hip precautions as instructed. Weight bear as tolerated. Gait training and ambulation per PT. Discharge Attestations Time Spent in Discharge Care*: greater than 30 min Specific Discharge Activities: educating patient, documenting/other paperwork and evaluating patient/reviewing data Quality Metrics Clinical Quality Measures [ No reported AMI, CVA or VTE this stay] Coding Level of Care Code Acute Code for Chg Fwd Diagnoses Primary osteoarthritis of left hip M16.12 History of total left hip arthroplasty Z96.642
[2023-05-25] MEDS: acetaminophen 500 mg Tablet 1000 MG PO (17:30)
--- NOTE | 2023-05-25 18:18 | PC.NURSE ---
This nurse called report to Kathryn with [facility]
== END 2023-05-25 16:58 | disposition home or self-care (01) ==
LOC: MEDSURG 20:02
PROVIDERS: Admitting Provider Specialist; PCP Nurse Practitioner Family; Visit Provider Specialist
PROC: (CPT 27130; principal; 2023-05-24 10:30)
DX: M16.12 Unilateral primary osteoarthritis, left hip (principal)
CPT/HCPCS: 27130; 36415; 51702; 72170; 80048; 81003; 85025; 97116; 97161; 97165; 97530; 97535; C1776; G0378; J0131; J0690; J2371; J2405; J2704; J3010; J3370; J3490; J7030

== ENCOUNTER → 2023-06-08 11:36 | Outpatient (BNVA) | payer MEDICARE, SELFPAY | PROVIDERS: PCP Nurse Practitioner Family; Visit Provider Nurse Practitioner | DX: Z96.642 Presence of left artificial hip joint (principal); M16.12 Unilateral primary osteoarthritis, left hip | CPT/HCPCS: 73502; 99024 ==

== ENCOUNTER → 2023-06-21 13:37 | Outpatient (BNVA) | payer MEDICARE, SELFPAY | PROVIDERS: PCP Nurse Practitioner Family; Visit Provider Nurse Practitioner | DX: Z96.642 Presence of left artificial hip joint (principal); M16.12 Unilateral primary osteoarthritis, left hip | CPT/HCPCS: 73502; 99024 ==

== ENCOUNTER → 2023-07-06 10:00 | Outpatient (BNVA) | payer MEDICARE, SELFPAY | PROVIDERS: PCP Nurse Practitioner Family; Visit Provider Nurse Practitioner | DX: Z96.642 Presence of left artificial hip joint (principal); M16.12 Unilateral primary osteoarthritis, left hip; M54.42 Lumbago with sciatica, left side | CPT/HCPCS: 73502; 99024 ==

== ENCOUNTER → 2023-08-17 10:49 | Outpatient (BNVA) | payer MEDICARE, SELFPAY | PROVIDERS: PCP Nurse Practitioner Family; Visit Provider Nurse Practitioner | DX: Z96.642 Presence of left artificial hip joint (principal); M16.0 Bilateral primary osteoarthritis of hip | CPT/HCPCS: 73502; 99024; 99214 ==

== ENCOUNTER → 2023-11-30 13:07 | Outpatient (BNVA) | payer MEDICARE, SELFPAY | PROVIDERS: PCP Nurse Practitioner Family; Visit Provider Specialist | DX: M16.0 Bilateral primary osteoarthritis of hip; Z96.642 Presence of left artificial hip joint | CPT/HCPCS: 73523; 99214 ==

== ENCOUNTER 2024-03-09 08:12 | Outpatient (CLI) | payer MEDICARE, SELFPAY ==
--- NOTE | 2024-03-09 08:45 | MR_ITS ---
WS: [id number] EXAMINATION: MR hip RT wo con* [id number] ORDER DATE: 03/09/2024 8:47 AM COMPARISON: None. HISTORY: M16.11 - Unilateral primary osteoarthritis, right hip CONTRAST: MRI LEFT hip 04/26/2023 TECHNIQUE: Coronal STIR of the Pelvis. Coronal proton density, coronal T1, axial T2 fat sat, axial T1 , sagittal T2 fat sat, and sagittal T1 performed of the hip. After contrast, axial T1 fat sat, coron al T1 fat sat, and sagittal T1 fat sat were performed. FINDINGS: Interval postoperative changes LEFT ANA PAULA. Focal protuberance of the RIGHT femoral head neck junction which can be seen with cam type femoral a cetabular impingement. New diffuse edema within the RIGHT femoral head neck junction which has develo ped since the prior MRI. Edema in the adjacent acetabulum. Advanced degenerative narrowing with subchondral cystic change invo lving the femoral head and acetabulum. Chondromalacia anterior superior acetabulum with irregularity of the anterior superior labrum likely due to chronic tear. Small joint effusion. Normal bone marrow signal in the proximal femoral shaft partially visualized. Small amount of trochanteric bursitis MR/MR hip RT wo con* [id number] IMPRESSION: 1. Postoperative changes LEFT ANA PAULA new from previous. 2. Advanced joint arthritis RIGHT hip with subchondral cystic change and edema . 3. Diffuse edema involving the RIGHT femoral head-neck junction new from previ ous. Small joint effusion. 4. Prominence of the RIGHT femoral head-neck junction can be seen with cam typ e femoral acetabular impingement. 5. Advanced chondromalacia RIGHT hip with chronic appearing labrum tear involv ing the anterior superior labrum.
== END 2024-03-09 08:13 | disposition home or self-care (01) ==
LOC: RAD 08:13
PROVIDERS: PCP Nurse Practitioner Family; Visit Provider Specialist
DX: M16.11 Unilateral primary osteoarthritis, right hip (principal); Z96.642 Presence of left artificial hip joint; M71.351 Other bursal cyst, right hip; M24.851 Other specific joint derangements of right hip, not elsewhere classified; M94.251 Chondromalacia, right hip; S73.191A Other sprain of right hip, initial encounter
CPT/HCPCS: 73721

== ENCOUNTER → 2024-04-06 09:22 | Outpatient (BNVA) | payer MEDICARE, SELFPAY | PROVIDERS: PCP Nurse Practitioner Family; Visit Provider Nurse Practitioner | DX: M16.11 Unilateral primary osteoarthritis, right hip (principal) | CPT/HCPCS: 99214 ==

== ENCOUNTER → 2024-05-08 08:29 | Outpatient (BNVA) | payer MEDICARE, SELFPAY | PROVIDERS: PCP Nurse Practitioner Family; Visit Provider Family Medicine | DX: Z01.818 Encounter for other preprocedural examination (principal) | CPT/HCPCS: 80053; 81003; 85025 ==

== ENCOUNTER → 2024-05-09 10:41 | Outpatient (BNVA) | payer MEDICARE, SELFPAY | PROVIDERS: PCP Nurse Practitioner Family; Visit Provider Nurse Practitioner | DX: M16.11 Unilateral primary osteoarthritis, right hip (principal) | CPT/HCPCS: 99214 ==

== ENCOUNTER 2024-05-22 12:34 | Observation (INO) | payer MEDICARE, SELFPAY ==
--- OUTSIDE RECORDS SUMMARY | 2024-05-15 15:03 | XMS_ITS | Patient Health Record ---
Author Name Unknown Organization [facility] Address [address] [place] [address] Care Team Providers Care Tip Stitcher Name Role Phone LakishaDennys bowenin Primary Care Provider Юлия Melendez Unavailable [phone] Allergies Allergen (clinical drug ingredient) Drug/Non Drug Allergy documented on EMR Reaction Allergy Type Onset Date Status No Known Drug Allergy Unknown Drug Allergy Active Reason For Referral No Information Medications Medication SIG (Take, Route, Fr equency, Duration) [...] 1 tablet Orally Twice a day Active Immunizations Vaccine Route Administration Date Status Comme nts Influenza (whole), CPT 96040 Inactive Unknown 07/02/2015 Administered Social History Tobacco Use: Social History Observation Description Date Details (start date - stop date) Never Smoker NA - NA xTobacco Use/Smoking Question Answer Notes Are you a nonsmoker Alcohol Screen (Audit-C) Question Answer Notes Did you have a drink containing alcohol in the p ast year? No Points 0 Interpretation Negative Problems Problem Type SNOMED Code ICD Code Onset Dates Problem Status W/U Status Risk Notes Problem 24612855 Essential hypertension (I10) Active confirmed Problem 41005233 Restless legs syndrome (RLS) (G25.81) Active confirmed Problem 896219645 Gastroesophageal reflux disease, unspecified whether esophagitis present (K21.9) Active confirmed Problem 478086680 Chronic depressi on (F32.A) Active confirmed Plan Of Treatment Pending Test Test Name Order Date Fecal Leukocyte 35620 11/02/2021 Basic Metabolic Panel (BMP) 19234 2021 CBC w\ Auto Diff 43058 11/02/2021 Hepatic Function Panel 87197 11/02/2021 CRP 91167 11/02/2021 Calprotectin Fecal 09794 11/02/2021 Pancreatic Elastase Fecal--52571 022 Diagnostic Colonoscopy-40826 11/02/2021 Insurance Providers Payer Name Payer Address Payer Phone Subscriber Number Group Number Insured Name Patient Relationship to Insured Coverage Start Date Coverage End Date [employer] Medicare Replacement [address] [address] [place] [address] [id number] Elizabeth Gottlieb Self - patient is the insured Medical (General) History Medical History History ICD Code Problem:Anxiety (finding) [...] :: Active Hypertension Surgical History Surgery Date(Month/Year) bilateral tubal ligation bilateral carpal tunnel release hysterectomy hiatal hernia repair with mesh implant
[2024-05-22] VITALS (21 sets, daily range): BP systolic 87–143; BP diastolic 53–97; PULSE 51–76; RESP 13–18; TEMP 36.2–36.6; O2SAT 94–100; BMI 31.3
--- OUTSIDE RECORDS SUMMARY | 2024-05-22 07:59 | XMS_ITS | Patient Health Record ---
Author Name Unknown Organization [facility] Address [address] [place] [address] Care Team Providers Care Cooler Supervisor Name Role Phone LakishaDennys bowenin Primary Care Provider Юлия Melendez Unavailable [phone] Allergies Allergen (clinical drug ingredient) Drug/Non Drug [...] Date Status Comme nts Influenza (whole), CPT 52757 Inactive Unknown 07/02/2015 Administered Social History Tobacco [...] Problem Status W/U Status Risk Notes Problem 29340163 Essential hypertension (I10) Active confirmed Problem 26698055 Restless legs syndrome (RLS) (G25.81) Active confirmed Problem 006929889 Gastroesophageal reflux disease, unspecified whether esophagitis present (K21.9) Active confirmed Problem 110344139 Chronic depressi on (F32.A) Active confirmed Plan Of Treatment Pending Test Test Name Order Date Fecal Leukocyte 99013 11/02/2021 Basic Metabolic Panel (BMP) 30835 2021 CBC w\ Auto Diff 56929 11/02/2021 Hepatic Function Panel 05335 11/02/2021 CRP 60559 11/02/2021 Calprotectin Fecal 94530 11/02/2021 Pancreatic Elastase Fecal--46745 022 Diagnostic Colonoscopy-17000 11/02/2021 Insurance Providers Payer Name Payer Address Payer Phone Subscriber Number Group Number Insured Name Patient Relationship to Insured Coverage Start Date Coverage End Date [employer] Medicare Replacement [address] [address] [place] [address] [id number] Elizabeth Gottlieb Self - patient is the [...]
--- NOTE | 2024-05-22 08:10 | W.PM.OPSUD ---
Surgery/Procedure H&P Update DATE OF PROCEDURE: May 22, 2024 DATE H&P PERFORMED: 05/09/24 H&P UPDATE INFORMATION: I have reviewed H&P completed within last 30 days, I have examined patient prior to procedure, No changes to prior documentation and H&P is in [facility] E[place] on date indicated PLANNED PROCEDURE: Operation Date: 05/22/24 09:40 Proposed Procedures p Total Hip Arthroplasty(Right) - Suzanne Jimenez MD Related Problem List Diagnoses (1) Osteoarthritis of right hip: Qualifiers: Osteoarthritis type: primary Qualified Code(s): M16.11 - Unilateral primary osteoarthritis, right hip
--- NOTE | 2024-05-22 08:12 | P.ANESASSM_ITS ---
Pre-Anesthetic Assessment Height/Weight: Height 1.73 m Operation Date: 05/22/24 09:40 Proposed Procedures p Total Hip Arthroplasty(Right) - Suzanne Jimenez MD Familial anesthetic complications: Some difficulty waking up after Once had Low BP from anesthesia Was Beta Helen taken within 24 hours: N/A Was Clonidine taken within 24 hours: N/A Last intake: > 8 hrs Social No alcohol and No tobacco Exam alert, oriented x 3, clear to auscultation bilaterally and regular rate & rhythm Airway Mallampati: Class II Dentition: chipped CV/HEM Hypertension GI Gastroesophageal Reflux Disease Silvana Fundoplication Anesthetic Plan ASA status: 2 Anesthesia: Regional (specify below) Risk of > 500 ml blood loss (7ml/kg in children): Yes, adequate IV access and fluids planned Medications/Allergies Home Medications Medication Instructions Recorded Confirmed Last Taken Type gabapentin 300 mg capsule 300 mg PO QPM 05/23/23 05/21/24 05/20/24 History sertraline 100 mg tablet (Zoloft) 100 mg PO QPM 05/23/23 05/21/24 05/20/24 History lisinopril 10 mg tablet 10 mg PO QPM 05/08/24 05/21/24 05/20/24 History omeprazole 20 mg capsule,delayed 20 mg PO DAILY 05/08/24 05/21/24 05/20/24 History release Allergies Allergy/AdvReac Type Severity Reaction Status Date / Time No Known Allergies Allergy Verified 05/09/24 10:43 [facility] Anesthesia Medical History Osteoarthritis of right hip Lumbago with sciatica, left side Surgical History History of Silvana fundoplication Family History Denies family history of Anesthesia complication Bleeding disorder Social History Smoking and tobacco/nicotine status: never used tobacco/nicotine Alcohol intake: never Substance/Drug Use: never Adopted: No Caregiver/support person: Yes Lives independently: Yes Household members: spouse Housing: House Marital status: Current occupational status: employed 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
[2024-05-22] MEDS: acetaminophen 1,000 MG/100 ML PIGGYBACK 400 MG IV ×3 (08:23→19:29)
[2024-05-22] MEDS: sodium chloride 0.9% 1,000 ML 30 ML IV (08:24)
[2024-05-22] MEDS: gabapentin 300 mg Capsule PO ×2 (08:32→17:24)
[2024-05-22] MEDS: CELEcoxib 200 mg Capsule 400 MG PO (08:32)
[2024-05-22] MEDS: ceFAZolin 2,000 mg SDV 2000 MG IVP ×3 (08:55→23:57)
[2024-05-22] MEDS: tranexamic acid 1,000 mg/10mL SDV 1000 MG IV (09:45)
[2024-05-22] MEDS: vancomycin 1,000 MG SDV 1000 MG XX (10:04)
[2024-05-22] MEDS: ceFAZolin 1,000 mg SDV 1000 MG IRRIGATION (10:05)
--- NOTE | 2024-05-22 12:08 | P.OP_ITS ---
Operative Report Date of procedure: May 22, 2024 Pre-op diagnosis: Primary osteoarthritis right hip Post-op diagnosis: Primary osteoarthritis right hip Post-op findings: Severe degenerative osteoarthritis with osteopenia Procedure done: Right total hip arthroplasty Implants: The [place] total hip system with a size 50 mm by D alpha code Trident II Tritanium cluster hole acetabular shell with 2 screws and an MDM liner size 38 mm inner diameter by D alpha code.? A size 5 Accolade II 127? neck angle hip stem with a size 22.2 mm x +3 mm femoral head and a protestant MDM X3 insert size 38D Specimens removed/disposition: Bone, disposed of Surgeon: Suzanne Jimenez MD [employer] Supervisor: Suze Tanner [employer] Supervisor: Suze Tanner NP. Services of the nurse practitioner casino assistant manager were required for positioning, manipulation of the leg during the surgical procedure, retraction, and completion of the surgical procedure. Anesthesia: Spinal (With MAC, ASA 2) Estimated blood loss (mL): 250 IV fluids (mL): 1,000 Urine output (mL): 500 Complications: None Findings: Severe degenerative osteoarthritis with severe osteopenia. Postoperatively, the hip was stable to external rotation. It was stable at 90 degrees of flexion with 30 degrees of adduction and 70 degrees of internal rotation. Condition: stable Disposition: PACU (Then discharged to floor for postoperative rehabilitation and pain management. Observation status) Brief History: This 63-year-old woman presented to the clinic with complaints of bilateral hip pain. She underwent left total hip arthroplasty and she has done well following this. Today, she wishes to proceed with left total hip arthroplasty. She was seen in the office and questions were answered. Consents were signed. Surgical procedure risks and complications were discussed in detail. Preoperatively we will also assess leg lengths. She does feel that the right leg is chronically longer than the left even prior to her surgical procedures. The hip was interfering with her activities of daily living, therefore, the above procedure was scheduled. Procedure: Patient was brought to the operating theater.? She was transferred to the operating room table and subsequently administered a spinal anesthesia with MAC, ASA 2.? Following administration of adequate anesthesia, the patient was placed in full lateral position and held in position with a pegboard.? The patient's right lower extremity was then prepped and draped in usual fashion utilizing DuraPrep.? It was draped free.? Following prepping and draping, a surgical pause was performed.? At the time of surgical pause, we identified the site and side of surgery.? We also identified the patient and preoperative surgical markings.? Additionally, leg lengths were marked after draping.? Confirmation was made of equipment availability.? The patient's preoperative IV antibiotic, Ancef 2 g, and TXA administration was confirmed as well.? X-rays were also reviewed. Following the surgical pause, an incision was made centering over the patient's greater trochanter continuing proximally and distally as necessary to allow access to the hip joint.? Dissection continued through skin and soft tissues using a scalpel, and hemostasis was obtained using electrocautery. The tensor fascia bc was identified and incised longitudinally, and the tensor fascia bc was noted to be very tight. Exposure was difficult secondary to this. Sciatic nerve was identified and protected throughout the surgical procedure.? A Charnley U retractor was placed after the tensor fascia bc had been incised longitudinally, and the sciatic nerve had been identified.? The hip was internally rotated, and the piriformis muscle was identified and tagged. Piriformis muscle along with the remaining short external rotators were then incised from the posterior aspect of the hip joint.? These were retracted posteriorly.? The capsule was entered in a T-type fashion with the edges being tagged, and subsequently the hip was dislocated.? There was very thickened labrum as well.? This was excised with further excision accomplished once the femoral head was removed.? Following hip dislocation, a femoral neck osteotomy was accomplished in the appropriate position.? The head was measured, but it was quite deformed.? Subsequently, it was disposed of.? We then evaluated the acetabulum. The femur was retracted anteriorly.? Soft tissues were retracted, and the labrum was removed.? We then began reaming.? Once the femoral head was removed, there was noted to be significant loss of cartilage over the head with the previously noted deformity and within the acetabulum.? We reamed to a size 49mm to allow for a size 50 mm acetabular shell.? The acetabulum was impacted into position.? The cluster cup was impacted into position, 2 screws were placed. The screws had good bite. The cup was stable. The MDM liner was then impacted into position with care being taken to assure it seated appropriately.? It was noted that the acetabulum matched the bony anatomy.? The cup was noted to seat nicely and had good fixation upon impact. Attention was directed to the proximal femur.? The proximal femur was lifted out of the wound.? A canal finder was passed after the box chisel. We then began broaching. We broached sequentially and had excellent fit and fill with the size 5 broach. ? A trial reduction was attempted with a +0 mm femoral head.? Subsequently, we changed to a +3 mm femoral head. With this construct, the hip was stable, and leg length was felt to be equal.? With this in place, we had the above stabilities.? This was felt to be excellent stability. Therefore, trial components were removed after the hip was dislocated.? The size 5 Accolade II 127? neck angle stem was impacted into position without difficulty and onto this was placed a +3 mm x 28 mm femoral head which had been assembled into the MDM insert size 38D.? With a +3 mm femoral head, we had the above-noted stability.? The stem was noted to seat nicely prior to placement of the femoral head.? The wound was copiously irrigated with 20 mL of Betadine and 500 mL of normal saline mixed together.? Subsequently, we suctioned this out and irrigated the wound copiously with lactated Ringer's.? At this time, with all components in appropriate position, the hip was reduced.? Following reduction of the prosthesis once again, we confirmed the stability of the hip.? Leg lengths were also felt to be satisfactory. Being satisfied with the prosthesis, attention was directed to closure.? Closure was accomplished with 0 Vicryl in the capsular tissues.? Piriformis was reattached with 0 Vicryl as well.? Tensor fascia bc was closed with 0 Vicryl in an interrupted fashion.? The subcutaneous tissues were closed with a combination of 0 Vicryl and 2-0 STRATAFIX. Vancomycin powder and a Gelfoam thrombin mixture was placed into the wound as well.? The skin was closed with a running 3-0 STRATAFIX followed by Dermabond Prineo followed by OpSite.? The patient was placed in an abduction pillow.? She was returned the Recovery Room in a satisfactory condition and will be discharged to the floor for postoperative rehabilitation and pain management.? There were no complications or specimens. Related Problem List Diagnoses (1) Osteoarthritis of right hip:
--- NOTE | 2024-05-22 12:20 | XR_ITS ---
WS: [id number] XR pelvis 1-2V* 13026 REASON FOR EXAM: Right total hip FINDINGS: Total right hip arthroplasty. Components of the arthroplasty are intact and in proper position and alignment. No bone abnormality. XR/XR pelvis 1-2V* 08616 IMPRESSION: Total right hip arthroplasty without abnormality.
--- NOTE | 2024-05-22 12:36 | PC.NURSE ---
awake and oriented. moves right toes on command. good pedal pulses. able to feel sendation entire legs. Slight burning sensation at right incision site.
--- NOTE | 2024-05-22 12:55 | ANE.PACU2 ---
Inpatient post-anesthesia follow up: Airway intact: Yes Vital signs: Temperature 97.5 F Pulse Rate 56 Respiratory Rate 16 Blood Pressure 125/75 Pulse Oximetry 96 Oxygen Delivery Me thod Room Air Oxygen Flow Rate 0 Fraction of Inspir ed Oxygen Hydration adequate: Yes Nausea and vomiting: No Pain level: 1 Mental status: Baseline
[2024-05-22] MEDS: CELEcoxib 200 mg Capsule PO ×2 (13:58→23:57)
[2024-05-22] MEDS: oxyCODONE 5 mg IR Tab/Cap PO ×2 (13:58→19:29)
[2024-05-22] MEDS: chlorhexidine gluconate 0.12% Btl 473 mL 30 ML MUCOUS MEM ×2 (14:01→19:30)
[2024-05-22] MEDS: tranexamic acid 1,000 MG/100 ML PREMIX 600 MG IV (16:29)
[2024-05-22] MEDS: sennosides-docusate Tablet 2 TAB PO (17:23)
[2024-05-22] MEDS: calcium carbonate 500 mg Chew Tablet 1000 MG PO (17:23)
[2024-05-22] MEDS: sertraline 100 mg Tablet PO (17:24)
[2024-05-22] MEDS: iron polysaccharide complex 150 mg Capsule PO (17:24)
--- NOTE | 2024-05-22 23:42 | PC.NURSE ---
Addendum entered by Arabella Manuel RN 05/23/24 00:24: Patient asymptomatic. Original Note: Dr. Jimenez notified of blood pressure 87/53 with machine and 76/40 manually. 500 ml bolus ordered.
[2024-05-22] MEDS: sodium chloride 0.9% 500 ML 999 ML IV (23:57)
[2024-05-23] VITALS (11 sets, daily range): BP systolic 80–100; BP diastolic 53–63; PULSE 59–64; RESP 17–18; TEMP 36.6–36.8; O2SAT 90–94
[2024-05-23] MEDS: acetaminophen 1,000 MG/100 ML PIGGYBACK 400 MG IV (04:03)
[2024-05-23 05:05] LABS: Basophils % 0.2 %; Eosinophils # 0.2 10^3/uL (0.0-0.8); Eosinophils % 2.5 %; Hematocrit 33.6 % (36-47); Lymphocytes # 1.5 10^3/uL (0.8-4.8); Mean Corpuscular Hemoglobin 28.6 pg (27-33); Mean Corpuscular Volume 92.3 fl (85-98); Mean Platelet Volume 10.6 fL (7.4-10.4); Monocytes # 0.5 10^3/uL (0.2-0.9); Monocytes % 5.3 %; Neutrophils # 6.38 10^3/uL (1.8-7.7); Neutrophils % 74.6 %; Nucleated Red Blood Cells % 0 %; Platelet Count 142 10^3/cmm (157-399); Red Blood Count 3.64 10^6/uL (3.85-5.65); Red Cell Distribution Width 13.9 % (12.1-15.1); White Blood Count 8.54 10^3/uL (3.29-11.43)
[2024-05-23 05:34] LABS: Anion Gap 12.3 (5-19); Blood Urea Nitrogen 15 mg/dL (8-23); Calcium 7.8 mg/dL (8.5-10.5); Carbon Dioxide 25 mmol/L (22-29); Chloride 105 mmol/L (98-107); Creatinine Clr Calc Pharmacy 97.0487; Glomerular Filtration Rate 84.2 mL/min (90-130); Glucose 93 mg/dL (65-115); Osmolality Calculated 287 mOsm/kg (285-295); Potassium 4.3 mmol/L (3.5-5.1); Sodium 138 mmol/L (136-145)
[2024-05-23] MEDS: chlorhexidine gluconate 0.12% Btl 473 mL 30 ML MUCOUS MEM ×2 (07:49→12:23)
[2024-05-23] MEDS: mupirocin oint 22 gm 1 APPLIC NASAL (07:50)
[2024-05-23] MEDS: iron polysaccharide complex 150 mg Capsule PO (07:51)
[2024-05-23] MEDS: calcium carbonate 500 mg Chew Tablet 1000 MG PO (07:51)
[2024-05-23] MEDS: sennosides-docusate Tablet 2 TAB PO (07:51)
[2024-05-23] MEDS: multivitamin therapeutic Tablet 1 TAB PO (07:52)
[2024-05-23] MEDS: aspirin 325 mg EC Tablet PO (07:52)
[2024-05-23] MEDS: pantoprazole DR 40 mg Tablet PO (07:52)
[2024-05-23] MEDS: ceFAZolin 2,000 mg SDV 2000 MG IVP (07:52)
[2024-05-23] MEDS: cholecalciferol (vitamin D3) 1,000 unit Tablet 1000 UNIT PO (07:52)
[2024-05-23] MEDS: acetaminophen 500 mg Tablet 1000 MG PO (12:23)
[2024-05-23] MEDS: CELEcoxib 200 mg Capsule PO (12:23)
--- NOTE | 2024-05-23 13:34 | PM.DCS ---
Discharge Providers Date of Admission: 05/22/24 12:34 Date of Discharge: May 23, 2024 Attending Provider at Admission: Suzanne Jimneez MD Attending Provider at Discharge: Suzanne Jimenez MD Primary Care Provider: Elizabeth Lay APRN Diagnoses at Discharge Discharge Diagnosis (1) Osteoarthritis of right hip: Status: Chronic Qualifiers: Osteoarthritis type: primary Qualified Code(s): M16.11 - Unilateral primary osteoarthritis, right hip (2) S/P total right hip arthroplasty: Status: Acute Permanent problem details: Date of procedure: May 22, 2024 Diagnosis: Primary osteoarthritis right hip Procedure done: Right total hip arthroplasty Implants: The [place] total hip system with a size 50 mm by D alpha code Trident II Tritanium cluster hole acetabular shell with 2 screws and an MDM liner size 38 mm inner diameter by D alpha code. A size 5 Accolade II 127? neck angle hip stem with a size 22.2 mm x +3 mm femoral head and a congregation MDM X3 insert size 38D Reason for Visit Reason for Visit: M16.11 Brief History: This 63-year-old woman presented to the clinic with complaints of bilateral hip pain. She underwent left total hip arthroplasty and she has done well following this. Today, she wishes to proceed with left total hip arthroplasty. She was seen in the office and questions were answered. Consents were signed. Surgical procedure risks and complications were discussed in detail. Preoperatively we will also assess leg lengths. She does feel that the right leg is chronically longer than the left even prior to her surgical procedures. The hip was interfering with her activities of daily living, therefore, the above procedure was scheduled. Hospital Course Hospital Course Patient was admitted under observation status following right total hip arthroplasty. She tolerated the procedure well. Postoperatively, she did have a decrease in her blood pressure, but this responded nicely to treatment. There was no evidence of DVT. Neurologically she was intact. Her thigh was soft and nontender. Plans were made for her discharge to home with home health. She will participate with therapies as tolerated. Physical Exam Const: COMMON NORMALS: no acute distress, average body habitus, patient oriented x3 and alert GENERAL APPEARANCE: cooperative and comfortable ORIENTATION/CONSCIOUSNESS: Yes awake HENMT: COMMON NORMALS: normocephalic and atraumatic HEAD & SCALP: normocephalic and atraumatic Eye: GENERAL EYE: appearance normal, both eyes and all related structures Chest: COMMONS NORMALS: normal inspection of the chest Resp: COMMON NORMALS: normal respiratory effort EFFORT & INSPECTION: Yes able to speak in complete sentences and Yes symmetric chest movement Extremity: RIGHT LOWER EXTREMITY: Yes hip joint (Thigh is soft and nontender.) Right hip: Yes ROM (Not evaluated) and Yes neurovascular exam (Intact with no evidence of DVT) Neuro: COMMON NORMALS: patient oriented x3 SENSORIUM/ORIENTATION: Yes alert Psych: COMMON NORMALS: mental status grossly normal APPEARANCE: Yes grossly normal ATTITUDE: Yes calm and Yes engaged ATTENTION/CONCENTRATION: Yes attention grossly intact Skin: COMMON NORMALS: no rashes or lesions noted GENERAL SKIN EXAM: no rashes or lesions noted Urinary Catheter Management: [place]: Cath Placed During This Visit: yes, but has since been removed by the nurse Reason for Continuing Indwelling Catheter: Decision to DC Catheter Date Urinary Catheter Removed: 05/23/24 Time Urinary Catheter Discontinued: 05:26 Discharge Data Studies Completed and Pending Completed Studies During Hospitalization Category Date Time Status XR pelvis 1-2V* 70238 Routine Exams 05/22/24 12:20 Completed Radiology Impressions Pelvis X-Ray 05/22/24 12:20 IMPRESSION: Total right hip arthroplasty without abnormality. Laboratory Results WBC 8.54 10^3/uL (3.29-11.43) 05/23/24 04:29 RBC 3.64 10^6/uL (3.85-5.65) L 05/23/24 04:29 Hgb 10.40 g/dL (11.27-16.99) L 05/23/24 04:29 Hct 33.6 % (36-47) L 05/23/24 04:29 MCV 92.3 fl (85-98) 05/23/24 04:29 MCH 28.6 pg (27-33) 05/23/24 04:29 MCHC 31.0 g/dL (30-55) 05/23/24 04:29 RDW 13.9 % (12.1-15.1) 05/23/24 04:29 Plt Count 142 10^3/cmm (157-399) L 05/23/24 04:29 MPV 10.6 fL (7.4-10.4) H 05/23/24 04:29 Neut % (Auto) 74.6 % 05/23/24 04:29 Lymph % (Auto) 17.0 % 05/23/24 04:29 Darke % (Auto) 5.3 % 05/23/24 04:29 Eos % (Auto) 2.5 % 05/23/24 04:29 Baso % (Auto) 0.2 % 05/23/24 04:29 Neut # (Auto) 6.38 10^3/uL (1.8-7.7) 05/23/24 04:29 Lymph # (Auto) 1.5 10^3/uL (0.8-4.8) 05/23/24 04:29 Darke # (Auto) 0.5 10^3/uL (0.2-0.9) 05/23/24 04:29 Eos # (Auto) 0.2 10^3/uL (0.0-0.8) 05/23/24 04:29 Baso # (Auto) 0.0 10^3/uL (0.0-0.1) 05/23/24 04:29 Nucleated RBC % (auto) 0 % 05/23/24 04:29 Nucleated RBCs # 0.0 /100WBC 05/23/24 04:29 Sodium 138 mmol/L (136-145) 05/23/24 04:29 Potassium 4.3 mmol/L (3.5-5.1) 05/23/24 04:29 Chloride 105 mmol/L (98-107) 05/23/24 04:29 Carbon Dioxide 25 mmol/L (22-29) 05/23/24 04:29 Anion Gap 12.3 (5-19) 05/23/24 04:29 BUN 15 mg/dL (8-23) 05/23/24 04:29 Creatinine 0.7 mg/dL (0.5-0.9) 05/23/24 04:29 GFR Calculation 84.2 mL/min (90-130) L 05/23/24 04:29 Glucose 93 mg/dL (65-115) 05/23/24 04:29 Calculated Osmolality 287 mOsm/kg (285-295) 05/23/24 04:29 Calcium 7.8 mg/dL (8.5-10.5) L 05/23/24 04:29 Vitals Last Vital Signs Temp 98.3 F 05/23/24 11:50 Pulse 64 05/23/24 11:50 Resp 18 05/23/24 11:50 BP 91/57 05/23/24 11:50 Pulse Ox 94 05/23/24 11:50 O2 Del Method Room Air 05/23/24 11:50 O2 Flow Rate 2 05/22/24 19:35 Discharge Plan Discharge Patient Disposition: Home Health Service Condition: Stable Prescriptions: New celecoxib 200 mg Capsule 200 mg PO 1XD 30 Days Qty: 30 0RF hydrocodone-acetaminophen 5-325 mg Tablet 1 tab PO Q4H PRN (Reason: Moderate Pain) 7 Days Qty: 40 0RF aspirin 325 mg Tablet,Delayed Release (Dr/Ec) 325 mg PO DAILY 30 Days Qty: 30 0RF Continued omeprazole 20 mg capsule,delayed release(DR/EC) 20 mg PO DAILY lisinopril 10 mg tablet 10 mg PO QPM sertraline [Zoloft] 100 mg Tablet 100 mg PO QPM gabapentin 300 mg capsule 300 mg PO QPM Discharge Orders: Discharge Order (Routine); Ordered 05/23/24 Ordered By: Suzanne Jimenez Referrals: [facility] [Outside] Suzanne Jimenez MD [Physician] - 06/04/24 1:30 pm Discharge Diet: Advance as tolerated and Usual diet Discharge Activity: Increase activity as tolerated, Limit activity as instructed, Use walker/crutches as instructed and As per PT/OT instructions Patient Instructions: Hydrocodone/Acetaminophen (By mouth), Aspirin (By mouth), Celecoxib (By mouth), Acute Wound Care (DC), Total Hip Replacement (DC), Opioid Safety, Post Anesthesia Care Activity Restrictions/Additional Instructions: Posterior hip precautions. You may shower, but do not submerge your hip in water such as [place] the bathtub or other standing water. Ice your hip as needed. Weightbearing as tolerated. Discharge Attestations Time Spent in Discharge Care*: greater than 30 min Quality Metrics Clinical Quality Measures [ No reported AMI, CVA or VTE this stay] Coding Level of Care Code Acute Code for Chg Fwd Diagnoses Primary osteoarthritis of right hip M16.11 Osteoarthritis type: primary S/P total right hip arthroplasty Z96.641
[2024-05-23] MEDS: HYDROcodone-acetaminophen 5-325 mg Tablet 1 TAB PO (13:55)
== END 2024-05-23 14:20 | disposition home health service (06) ==
LOC: MEDSURG 12:35
PROVIDERS: Admitting Provider Specialist; PCP Nurse Practitioner Family; Visit Provider Specialist
PROC: (CPT 27130; principal; 2024-05-22 09:10)
DX: M16.11 Unilateral primary osteoarthritis, right hip (principal); M85.88 Other specified disorders of bone density and structure, other site; I10 Essential (primary) hypertension; K21.9 Gastro-esophageal reflux disease without esophagitis
CPT/HCPCS: 27130; 36415; 72170; 80048; 85025; 97110; 97116; 97162; 97167; 97530; C1713; C1776; G0378; J0131; J0690; J2250; J2371; J2405; J2704; J3370; J3490; J7030; J7040

== ENCOUNTER → 2024-06-04 10:10 | Outpatient (BNVA) | payer MEDICARE, SELFPAY | PROVIDERS: PCP Nurse Practitioner Family; Visit Provider Specialist | DX: Z96.641 Presence of right artificial hip joint (principal) | CPT/HCPCS: 73502; 99024 ==

== ENCOUNTER → 2024-07-09 08:06 | Outpatient (BNVA) | payer MEDICARE, SELFPAY | PROVIDERS: PCP Nurse Practitioner Family; Visit Provider Nurse Practitioner | DX: Z96.641 Presence of right artificial hip joint (principal); M96.840 Postprocedural hematoma of a musculoskeletal structure following a musculoskeletal system procedure; M16.11 Unilateral primary osteoarthritis, right hip | CPT/HCPCS: 73523; 99024 ==

== ENCOUNTER → 2024-07-30 10:44 | Outpatient (BNVA) | payer MEDICARE, SELFPAY | PROVIDERS: PCP Nurse Practitioner Family; Visit Provider Nurse Practitioner | DX: Z96.641 Presence of right artificial hip joint (principal); M96.840 Postprocedural hematoma of a musculoskeletal structure following a musculoskeletal system procedure; M16.11 Unilateral primary osteoarthritis, right hip | CPT/HCPCS: 73502; 99213 ==

== ENCOUNTER → 2025-04-08 09:34 | Outpatient (BNVA) | payer MEDICARE, SELFPAY | PROVIDERS: PCP Nurse Practitioner Family; Visit Provider Specialist | DX: Z96.641 Presence of right artificial hip joint (principal) | CPT/HCPCS: 73502; 99213 ==